=== PATIENT | male | born 1935 | race Caucasian/White ===

== ENCOUNTER 2023-02-11 11:36 | Emergency (ER) | payer MEDICARE ==
[2023-02-11 11:51] VITALS: RESP 18
--- NOTE | 2023-02-11 12:51 | ED ---
Upper Extremity HPI - General Source: patient, family, RN notes reviewed Mode of arrival: wheelchair Limitations: no limitations <Rony Whaley - Last Filed: 02/11/23 12:50> <Jonathan Garcia - Last Filed: 02/11/23 14:22> - General Chief Complaint: Extremity Injury, Upper Stated Complaint: RIGHT ARM/FALL/SWELLING Time Seen by Provider: 02/11/23 12:50 - History of Present Illness Initial Comments: 87-year-old male presents emergency Department with chief complaint of right hand, arm injury. Patient fell yesterday in the driveway. There was no reported head injury. Patient woke up with significant right hand, arm swelling, bruising. Denies any blood thinners. (oRny Whaley) - Related Data Allergies Allergy/AdvReac Type Severity Reaction Status Date / Time No Known Allergies Allergy Verified 02/11/23 11:51 Review of Systems ROS Other: All systems not noted in ROS Statement are negative. <Rony Whaley - Last Filed: 02/11/23 12:50> ROS Other: All systems not noted in ROS Statement are negative. <Jonathan Garcia - Last Filed: 02/11/23 14:22> ROS Statement: Those systems with pertinent positive or pertinent negative responses have been documented in the HPI. Past Medical History Past Medical History: Dementia, Hyperlipidemia, Memory Impairment History of Any Multi-Drug Resistant Organisms: None Reported Past Surgical History: Unable to Obtain Past Psychological History: No Psychological Hx Reported Smoking Status: Former smoker Past Alcohol Use History: None Reported Past Drug Use History: None Reported <Rony Whaley - Last Filed: 02/11/23 12:50> General Exam Limitations: no limitations <Rony Whaley - Last Filed: 02/11/23 12:50> General appearance: alert, in no apparent distress Head exam: Present: atraumatic, normocephalic Eye exam: Present: normal appearance, PERRL ENT exam: Present: normal exam Neck exam: Present: normal inspection. Absent: tenderness, meningismus Respiratory exam: Present: normal lung sounds bilaterally. Absent: respiratory distress, wheezes Cardiovascular Exam: Present: regular rate, normal rhythm GI/Abdominal exam: Present: soft. Absent: distended, tenderness, guarding, rebound Extremities exam: Present: other (Hematoma and soft tissue swelling from the hand to the elbow. 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 Small abrasion on the dorsum of the hand. Normal cap refill, distal pulses intact.) <Jonathan Garcia - Last Filed: 02/11/23 14:22> - General Exam Comments Initial Comments: Visual Physical Exam Vital signs reviewed General: Well-appearing, nontoxic, no acute distress. Head: Normocephalic, atraumatic Eyes: PERRLA, EOMI ENT: Airway patent Chest: Nonlabored breathing Skin: No visual rash, normal skin tone Neuro: Alert and oriented 3 Musculoskeletal: Significant right hand swelling, digit amputee, right arm ecchymosis and hand (Rony Whaley) Course Vital Signs 02/11/23 11:48 Temperature 98.6 F Pulse Rate 59 L Respiratory 18 Rate Blood Pressure 110/65 O2 Sat by Pulse 100 Oximetry Procedures - Orthopedic Splinting/Casting Injury #1 Side: right Upper Extremity Injury Location: wrist Upper Extremity Immobilizer: volar splint <Jonathan Garcia - Last Filed: 02/11/23 14:22> Medical Decision Making <Rony Whaley - Last Filed: 02/11/23 12:50> <Jonathan Garcia - Last Filed: 02/11/23 14:22> - Medical Decision Making I performed a quick note portion of this chart signed Rony Whaley PA-C (Rony Whaley) Was pt. sent in by a medical professional or institution (ASHVIN Carcamo, ASSEMBLY LINE INSPECTOR, urgent care, hospital, or [place] [facility] care facility...) When possible be specific @ -No Did you speak to anyone other than the patient for history (EMS, parent, family, police, friend...)? What history was obtained from this source @ Patient's son Did you review nursing and triage notes (agree or disagree)? Why? @ -I reviewed and agree with nursing and triage notes Were old charts reviewed (outside hosp., previous admission, EMS record, old EKG, old radiological studies, urgent care reports/EKG's, [place] [facility] facility records)? Report findings @ -No old charts were reviewed Differential Diagnosis (chest pain, altered mental status, abdominal pain women, abdominal pain men, vaginal bleeding, weakness, fever, dyspnea, syncope, headache, dizziness, GI bleed, back pain, seizure, CVA, palpatations, mental health, musculoskeletal)? @ -Differential Musculoskeletal Muscular strain, contusion, ligament sprain, fracture, arthritis, septic arthritis, bursitis, cellulitis, muscle spasm, nerve compression, DVT, arterial occlusion, herpes zoster, electrolyte abnormality, tumor.... This is not meant to be in all inclusive list EKG interpreted by me (3pts min.). @ -As above X-rays interpreted by me (1pt min.). @Distal radius fracture, ulnar styloid fracture, prior amputation on x-ray of the hand and right forearm CT interpreted by me (1pt min.). @ -None done U/S interpreted by me (1pt. min.). @ -None done What testing was considered but not performed or refused? (CT, X-rays, U/S, labs)? Why? @ -None What meds were considered but not given or refused? Why? @ -None Did you discuss the management of the patient with other professionals (professionals i.e. , PA, ASSEMBLY LINE INSPECTOR, lab, RT, psych nurse, licensed master social worker, operations developer, teacher, surveillance officer, keycase assembler)? Give summary @ -No Was smoking cessation discussed for >3mins.? @ -No Was critical care preformed (if so, how long)? @ -No Were there social determinants of health that impacted care today? How? (Homelessness, low income, unemployed, alcoholism, drug addiction, transportation, low edu. Level, literacy, decrease access to med. care, alf, rehab)? @ -No Was there de-escalation of care discussed even if they declined (Discuss DNR or withdrawal of care, Hospice)? DNR status @ -No What co-morbidities impacted this encounter? (DM, HTN, Smoking, COPD, CAD, Cancer, CVA, ARF, Chemo, Hep., AIDS, mental health diagnosis, sleep apnea, morbid obesity)? @ Dementia Was patient admitted / discharged? Hospital course, mention meds given and route, prescriptions, significant lab abnormalities, going to OR and other pertinent info. @ -87-year-old male status post fall which occurred yesterday. Patient has pain and swelling to the right hand and forearm. There is a distal radius and distal ulnar styloid fracture which is minimally displaced, intra-articular. Patient is neurovascularly intact. He does have significant hematoma and soft tissue swelling. He is placed in a volar splint and given orthopedic follow-up. He will take Tylenol for pain. He will ice extremity and elevate. Undiagnosed new problem with uncertain prognosis? @ -No Drug Therapy requiring intensive monitoring for toxicity (Heparin, Nitro, Insulin, Cardizem)? @ -No Were any procedures done? @ -[Yes, splinting Diagnosis/symptom? @ Wrist fracture Acute, or Chronic, or Acute on Chronic? @ -Acute Uncomplicated (without systemic symptoms) or Complicated (systemic symptoms)? @ -default Side effects of treatment? @ -No Exacerbation, Progression, or Severe Exacerbation? @ -No Poses a threat to life or bodily function? How? (Chest pain, [place], [place], pneumonia, PE, COPD, DKA, ARF, appy, cholecystitis, CVA, Diverticulitis, Homicidal, Suicidal, threat to staff... and all critical care pts) @ -No (Jonathan Garcia) Disposition <Rony Whaley - Last Filed: 02/11/23 12:50> Is patient prescribed a controlled substance at d/c from ED?: No Time of Disposition: 14:22 <Jonathan Garcia - Last Filed: 02/11/23 14:22> Clinical Impression: Fracture of wrist Disposition: HOME SELF-CARE Condition: Fair Instructions (If sedation given, give patient instructions): Arm Fracture in Adults (ED) Referrals: None,Stated [Primary Care Provider] - 1-2 days Paulino Ferraro MD [STAFF PHYSICIAN] - 1-2 days
--- NOTE | 2023-02-11 14:05 | XR ---
EXAMINATION TYPE: XR hand complete RT, XR forearm RT DATE OF EXAM: 02/11/2023 CLINICAL HISTORY: pain TECHNIQUE: Frontal, lateral and oblique images of the right hand are obtained. 2 views of the right forearm are also submitted. COMPARISON: None. FINDINGS: There is minimally displaced and mildly comminuted distal radial fracture with intra-articu lar extension. There is also fracture of the ulnar styloid process. There is surrounding soft tissue edema which extends into the dorsum of the hand. 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 IMPRESSION: There is minimally displaced and mildly comminuted distal radial fracture with intra-articular extens ion. There is also fracture of the ulnar styloid process.
[2023-02-11 15:10] VITALS: BP 98/64; PULSE 70; TEMP 97.9
== END 2023-02-11 15:11 | disposition home or self-care (01) ==
LOC: EC 11:36
DX: S52.611A Displaced fracture of right ulna styloid process, initial encounter for closed fracture (principal); Z87.891 Personal history of nicotine dependence; W18.30XA Fall on same level, unspecified, initial encounter; Y92.093 Driveway of other non-institutional residence as the place of occurrence of the external cause
CPT/HCPCS: 29125; 99283